=== PATIENT | female | born 1965 | race Caucasian/White ===

== ENCOUNTER 2016-09-20 05:25 | Day surgery (SDC) | payer OTHER ==
[2016-09-15 15:34] LABS: BASOPHILS 0.5 %; BASOPHILS ABSOLUTE 0.03 10/3/uL (0.0-0.16); EOSINOPHILS 3.2 %; EOSINOPHILS ABSOLUTE 0.21 10/3/uL (0.0-0.53); HEMATOCRIT 39.1 % (36.0-48.0); HEMOGLOBIN 13.2 g/dL (12.0-16.0); IMMATURE GRANULOCYTES 0.3 %; IMMATURE GRANULOCYTES ABSOLUTE 0.02 10/3/uL (0.0-0.11); LYMPHOCYTES 27.3 %; LYMPHOCYTES ABSOLUTE 1.82 10/3/uL (0.67-4.30); MEAN CORPUS HGB CONC 33.8 g/dL (32.0-36.0); MEAN CORPUSCULAR HEMOGLOB 29.9 pg (26.0-34.0); MEAN CORPUSCULAR VOLUME 88.5 fL (80-100); MEAN PLATELET VOLUME 9.1 fL (9.2-13.0); MONOCYTES 8.9 %; MONOCYTES ABSOLUTE 0.59 10/3/uL (0.21-1.20); NEUTROPHILS 59.8 %; NEUTROPHILS ABSOLUTE 3.99 10/3/uL (2.02-8.40); PLATELET COUNT 341 10/3/uL (150-400); RBC DISTRIBUTION WIDTH 14.7 % (12.0-16.0); RED CELL COUNT 4.42 10/6/uL (4.0-5.6); WHITE BLOOD CELLS 6.7 10/3/uL (4.5-10.5)
[2016-09-15 15:35] LABS: MANUAL DIFF NO %
[2016-09-15 16:23] LABS: A/G RATIO 1.2 (0.7-1.9); ALBUMIN 3.4 G/DL (3.5-5.0); ALKALINE PHOSPHATASE 95 U/L (45-117); CALCIUM, SERUM 8.7 MG/DL (8.5-10.4); CHLORIDE, SERUM 108 MMOL/L (96-112); CO2 (CARBON DIOXIDE) 27 MMOL/L (24-34); CREATININE 0.82 MG/DL (0.55-1.02); GFR AFRICAN AMERICAN 97 ML/MIN (>=60); GFR NON AFRICAN AMERICAN 84 ML/MIN (>=60); GLUCOSE, SERUM 89 MG/DL (60-99); POTASSIUM, SERUM 4.4 MMOL/L (3.5-5.3); SGOT(AST) 15 U/L (5-40); SGPT(ALT) 19 U/L (5-65); SODIUM, SERUM 142 MMOL/L (135-148); TOTAL BILIRUBIN 0.1 MG/DL (0-1.2); TOTAL PROTEIN 6.3 G/DL (6.0-8.5)
[2016-09-15 16:25] LABS: BUN (BLOOD UREA NITROGEN) 9 MG/DL (6-23); GLOBULIN 2.9 G/DL (2.5-4.1)
--- NOTE | ~2016-09-20 | HP ---
History And Physical [id number] [place]. [address] NAME: DORI CALVERT : 69 STATUS : [facility]#: [id number] AGE: 51 ADM/REG DATE : 09/20/16 MR#: [id number] REPORT SERV DATE: 09/20/16 DICTATED BY: BRIAN CRAWFORD III DATE: 09/20/16 REPORT STATUS : Draft TRANSCRIBED BY: OTILIA DATE: 09/20/16 DATE OF ADMISSION: 09/20/2016 HISTORY OF PRESENT ILLNESS: This 51-year-old female comes to the operating room for removal of a subclavian Port-A-Cath. The patient has a history of malignant lymphoma. She is status post chemotherapy and is in remission. She comes now for removal of her Port-A-Cath, which is no longer needed. PAST MEDICAL HISTORY: History of malignant lymphoma, now in remission. MEDICATIONS: ProAir, Wellbutrin, Xyzal, Prinivil, and Singulair. ALLERGIES: PENICILLINS. FAMILY HISTORY: Unremarkable. PHYSICAL EXAMINATION: GENERAL: This is an obese, pleasant female, in no acute distress. She is alert and oriented x3. HEENT: Unremarkable. Cranial nerves 2 through 12 are normal. LUNGS: Clear. CARDIAC: Normal. She has a right infraclavicular subclavian Port-A-Cath in place. EXTREMITIES: Normal. ASSESSMENT: 51-year-old female with history of malignant lymphoma, with need for removal of right subclavian vein Port-A-Cath. PLAN: The patient comes to the operating room now for removal of her right subclavian Port-A Cath. This procedure, the risks, benefits, and alternatives, including not limited to the risk for bleeding, infection, air embolus, pericardial tamponade, dislodgement of tubing requiring extraction, and unforeseen complications including deep venous thrombosis, pulmonary embolus, myocardial infarction, stroke, pneumonia, and , have been explained to the patient prior to surgery. Her questions have been answered. She understands the risks and agrees to surgery as planned. VICKY/OTILIA Brian Crawford III, M.D. / [id number] CC: History And Physical [address] [address] NAME: DORI CALVERT : [birth year] STATUS : [facility] PAT#: [id number] AGE: 51 ADM/REG DATE : 09/20/16 MR#: [id number] REPORT SERV DATE: 09/20/16 DICTATED BY: BRIAN CRAWFORD III DATE: 09/20/16 REPORT STATUS : Draft TRANSCRIBED BY: MODL DATE: 09/20/16 Harrison Juárez III, PAMELA J
--- NOTE | ~2016-09-20 | OP ---
Record Of Operation [facility] [address] [place]. [address] NAME: DORI CALVERT : [birth year] STATUS : [facility]#: [id number] AGE: 51 ADM/REG DATE : 09/20/16 MR#: [id number] REPORT SERV DATE: 10/12/16 DICTATED BY: BRIAN CRAWFORD III DATE: 09/20/16 REPORT STATUS : Draft TRANSCRIBED BY: MODL DATE: 09/20/16 DATE OF PROCEDURE: 09/20/2016 PREOPERATIVE DIAGNOSIS: History of malignant lymphoma with need for removal of subclavian vein Port-A-Cath. POSTOPERATIVE DIAGNOSIS: History of malignant lymphoma, with patient in remission and need for removal of subclavian vein Port-A-Cath. SURGEON: Brian Crawford M.D. ANESTHESIA: General with intubation. COMPLICATIONS: None. ESTIMATED BLOOD LOSS: Less than 5 mL. SPECIMENS: Port-A-Cath for identification. DRAINS: None. LAP AND SPONGE COUNT: Correct x3. BRIEF HISTORY: This 51-year-old female has a previous history of malignant lymphoma. She is status post appropriate chemotherapy and is considered to be in remission. It was felt that removal of her Port-A-Cath was indicated. This procedure, the risks, benefits, and alternatives including but not limited to the risk of bleeding, infection, air embolus, pericardial tamponade, dislodgement of tubing requiring extraction, and unforeseen complications including deep venous thrombosis, pulmonary embolus, myocardial infarction, stroke, pneumonia, and , were fully explained to the patient prior to surgery. Her questions were answered. She understood the risks and agreed to surgery as planned. DESCRIPTION OF PROCEDURE: After being properly identified and after discussing the risks of surgery with the patient again in the preoperative area, she was taken to the operating room and placed in the supine position on the operating room table. General anesthesia was administered and she was intubated without difficulty. The upper chest and neck areas were prepped and draped sterilely in the usual fashion. After an appropriate "time-out" per JCAHO standards, a small transverse incision was made directly over the Port-A-Cath in the right infraclavicular area. The incision was continued through subcutaneous tissue. Hemostasis was controlled with cautery. The capsule around the Port-A-Cath was opened. The sutures holding the Port-A-Cath housing in place were removed. The Port-A-Cath housing and tubing were removed. The entire tubing was removed. Pressure was held at the exit site of the tubing to prevent air embolus. This exit site was closed with a 3-0 Vicryl suture. Hemostasis was assured. The subcutaneous tissue was closed with running 3-0 Vicryl suture. The skin was closed with running subcuticular 4-0 Monocryl stitch. The incision was injected with 0.5% Marcaine. Dressings were applied. Anesthesia was reversed and the Record Of Operation [facility] [address] [place]. [address] NAME: DORI CALVERT : 69 STATUS : [facility] PAT#: [id number] AGE: 51 ADM/REG DATE : 09/20/16 MR#: [id number] REPORT SERV DATE: 10/12/16 DICTATED BY: BRIAN CRAWFORD III DATE: 09/20/16 REPORT STATUS : Draft TRANSCRIBED BY: OTILIA DATE: 09/20/16 patient was taken to recovery room in stable condition. She tolerated the procedure well. Her family was informed of the results of surgery. The patient was discharged when stable and comfortable. Her family was advised to keep the wound clean and dry for 48 hours and that she should not drive for two to three days after surgery or while using narcotics and that she should resume her usual medications. She was asked to return in two weeks for followup or sooner if any fever, chills, wound drainage, or other problems prior to that time. She was given a prescription for Percocet 7.5 one t.i.d. as needed for pain, which she was advised not to use while driving. VICKY/OTILIA Brian Crawford III, M.D. / [id number] / [id number] CC: Harrison Juárez III, PAMELA J
[~2016-09-20 05:25] MED LIST: IBU-200200 MG PO; PRIN20 PO; PROAIR HFA INH; SINGULAIR1 PO; WELLXL300 PO; X25 PO; XYZAL5 MG PO
== END 2016-09-20 10:11 | disposition home or self-care (01) ==
LOC: SDC 05:25
PROVIDERS: Surgery
PROC: 0JPT0XZ Removal of Tunneled Vascular Access Device from Trunk Subcutaneous Tissue and Fascia, Open Approach (ICD-10-PCS; principal; 2016-09-20 06:45)
DX: Z45.2 Encounter for adjustment and management of vascular access device (principal); I10 Essential (primary) hypertension; J45.909 Unspecified asthma, uncomplicated; E66.01 Morbid (severe) obesity due to excess calories; Z68.41 Body mass index [BMI] 40.0-44.9, adult; Z85.72 Personal history of non-Hodgkin lymphomas; Z86.718 Personal history of other venous thrombosis and embolism; Z88.0 Allergy status to penicillin
CPT/HCPCS: 71020; 80053; 84703; 85025; 88300; 93005; A9270-GY; J2250; J2370; J2405; J3010; J3370